=== PATIENT | female | born 1955 | race African-American/Black ===

== ENCOUNTER 2020-08-21 16:08 | Emergency (ER) | payer MEDICAID ==
[~2020-08-21] VITALS: Ht 152.4 cm; Wt 91.0 kg
[~2020-08-21 16:08] MED LIST: ALBUTEROL; AMLO1CAP13; HYDR12.529
[2020-08-21] MEDS ORDERED: IBUPROFEN 600MG TABLET PO STA (16:49)
[2020-08-21 17:57] VITALS: BP 110/48
== END 2020-08-21 18:00 | disposition home or self-care (01) ==
LOC: ER 16:08
DX: M13.88 Other specified arthritis, other site (principal); R05 Cough
CPT/HCPCS: 71045; 93005; 99283

== ENCOUNTER 2021-04-04 06:37 | Emergency (ER) | payer MEDICAID ==
[~2021-04-04] VITALS: Ht 152.4 cm; Wt 93.0 kg
[2021-04-04] MEDS ORDERED: ALBUTEROL (0.083%) 2.5MG/3ML NEB HHN STA (07:38)
[2021-04-04] MEDS ORDERED: IPRATROPIUM BROMIDE (0.02%) 0.5MG/2.5ML NEB HHN STA (07:38)
[2021-04-04 08:29] LABS: CHLORIDE 105 mEq/L (98-107)
[2021-04-04] MEDS ORDERED: POTASSIUM CHLORIDE 20MEQ TABLET SR PO ONE (09:00)
[2021-04-04] MEDS ORDERED: AZITHROMYCIN 500 MG in DEXT 5% WATER 250 ML IV ONE (12:15)
[2021-04-04] MEDS ORDERED: MEROPENEM 1,000 MG in SODIUM CHLORIDE 0.9% 100 ML IV ONE (12:15)
[2021-04-04] MEDS ORDERED: ALBU6.7H9 INH (12:38)
[2021-04-04] MEDS ORDERED: DOXY100C2 MT (12:39)
[2021-04-04 13:15] VITALS: BP 135/79
[2021-04-04] MEDS ORDERED: IOHEXOL-350 100 ML BOTTLE ONE (16:00)
== END 2021-04-04 13:34 | disposition home or self-care (01) ==
LOC: ER 06:37
DX: J18.9 Pneumonia, unspecified organism (principal); J45.909 Unspecified asthma, uncomplicated; E87.6 Hypokalemia; I10 Essential (primary) hypertension; E11.9 Type 2 diabetes mellitus without complications; Z88.0 Allergy status to penicillin; Z88.1 Allergy status to other antibiotic agents
CPT/HCPCS: 36415; 71275; 80053; 84484; 85379; 87040; 93005; 94640; 99285; Q9967; Z7610; J0456; J2185; J7050; J7060

== ENCOUNTER 2021-06-19 18:13 | Emergency (ER) | payer MEDICAID, OTHER ==
[~2021-06-19] VITALS: Ht 152.4 cm; Wt 89.0 kg
[~2021-06-19 18:13] MED LIST changes: +ALBU6.7H9 INH; +DOXY100C5 MT
[2021-06-19 23:11] LABS: BASOPHILS % 1.1 % (0.0-2.0); EOSINOPHILS % 4.2 % (0.0-5.0); HEMATOCRIT. 39.8 % (36.0-48.0); HEMOGLOBIN. 13.4 g/dL (12.0-16.0); LYMPHOCYTES % 43.4 % (20.0-50.0); MEAN CORPUSCULAR HEMOGLOBIN 30.3 pg (28.0-32.0); MEAN PLATELET VOLUME 7.9 fl (7.4-10.4); MONOCYTES % 8.8 % (2.0-8.0); NEUTROPHILS % 42.5 % (40.0-76.0); PLATELET 323 x1000/uL (130-400); RED BLOOD CELL COUNT 4.42 mill/uL (4.2-5.4); RED CELL DISTRIBUTION WIDTH 14.8 % (11.6-14.6)
[2021-06-19 23:16] LABS: CHLORIDE 108 mEq/L (98-107)
[2021-06-19] MEDS ORDERED: POTASSIUM CHLORIDE 20MEQ TABLET SR PO ONE (23:45)
[2021-06-20 00:08] VITALS: BP 110/65
== END 2021-06-20 00:09 | disposition home or self-care (01) ==
LOC: ER 18:13
DX: U07.1 COVID-19 (principal); I10 Essential (primary) hypertension; M19.90 Unspecified osteoarthritis, unspecified site; J45.909 Unspecified asthma, uncomplicated; Z98.890 Other specified postprocedural states; Z88.3 Allergy status to other anti-infective agents; Z88.0 Allergy status to penicillin
CPT/HCPCS: 36415; 71045; 80053; 85025; 93005; 99291; C9803; U0003; U0005

== ENCOUNTER 2021-08-28 15:18 | Emergency (ER) | payer MEDICAID, OTHER ==
[~2021-08-28] VITALS: Ht 165.1 cm; Wt 85.0 kg
[2021-08-28 15:21] VITALS: BP 117/65
[2021-08-28] MEDS ORDERED: SODIUM CHLORIDE 0.9% 500 ML IV ONE (17:15)
[2021-08-28] MEDS ORDERED: KETOROLAC 60MG/2ML VIAL IM ONE (17:15)
[2021-08-28] MEDS ORDERED: KETOROLAC 30MG/ML VIAL IV ONE (17:15)
[2021-08-28] MEDS ORDERED: METOCLOPRAMIDE HCL 10MG/2ML VIAL IV ONE (17:15)
== END 2021-08-28 17:48 | disposition home or self-care (01) ==
LOC: ER 15:18
DX: G44.309 Post-traumatic headache, unspecified, not intractable (principal); J45.909 Unspecified asthma, uncomplicated; I10 Essential (primary) hypertension; Z88.0 Allergy status to penicillin
CPT/HCPCS: 99284; J7040